=== PATIENT | male | born 1995 | race Two or more races ===

== ENCOUNTER 2019-04-10 16:02 | Emergency (ER) | payer OTHER ==
[~2019-04-10] VITALS: Ht 172.7 cm; Wt 87.1 kg
[2019-04-10] MEDS ORDERED: KETOROLAC 15 MG/ML VIAL. IM ONE (16:15)
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
--- NOTE | 2019-04-10 17:06 | RAD ---
EXAM: Lumbar spine CT without contrast. HISTORY: Fall. TECHNIQUE: Computed tomographic images of the lumbar spine were obtained without contrast. Multiplanar reformatting was performed. *One or more of the following individualized dose reduction techniques were utilized for this examination: 1. Automated exposure control. 2. Adjustment of the mA and/or kV according to patient size. 3. Use of iterative reconstruction technique. COMPARISON: Radiographs obtained on the same date. FINDINGS: There is a mild acute anterior wedge compression fracture of L1 with approximately one third decreased in anterior vertebral body height. There is no retropulsion of the cortex or fracture line extension to the posterior elements. The remainder of the visualized vertebral bodies are normal in height. There is minimal endplate remodeling. There are few small endplate Schmorl's nodes. There is no suspicious osseous lesion. There is no significant stenosis. IMPRESSION: Mild acute wedge compression fracture of L1. There is no fracture line extension to the posterior elements or significant central canal stenosis. Electronically signed by: Lesly Young MD (04/10/2019 5:03 PM) [facility]
[2019-04-10] MEDS ORDERED: HYDR-3165 PO (18:06)
[2019-04-10] MEDS ORDERED: MELO7.5T29 PO (18:06)
[2019-04-10 18:12] VITALS: BP 134/81
== END 2019-04-10 18:12 | disposition home or self-care (01) ==
LOC: ER 16:02
DX: S32.010A Wedge compression fracture of first lumbar vertebra, initial encounter for closed fracture (principal); F17.210 Nicotine dependence, cigarettes, uncomplicated; W18.39XA Other fall on same level, initial encounter; Y93.89 Activity, other specified; Y92.89 Other specified places as the place of occurrence of the external cause; Y99.8 Other external cause status
CPT/HCPCS: 72100; 72131; 96372; 99284; J1885

== ENCOUNTER 2019-11-28 19:37 | Emergency (ER) | payer OTHER ==
[~2019-11-28] VITALS: Ht 172.7 cm; Wt 86.4 kg
[~2019-11-28 19:37] MED LIST: HYDR-3165 PO; MELO7.5T29 PO
[2019-11-28 19:45] VITALS: BP 143/99
[2019-11-28] MEDS ORDERED: DEXAMETHASONE 4 MG TABLET PO ONE (20:00)
--- NOTE | 2019-11-28 20:05 | PHYS DOC ---
Past History Past Medical History: No Pertinent History Past Surgical History: No Surgical History Smoking: Cigarettes, Less than 1pk/day Alcohol Use: Heavy Drug Use: None Adult General Chief Complaint Chief Complaint: COUGH HPI HPI 24-year-old male presents to the ED with a cough. He states that he has had this cough since with some phlegm. Associated symptoms: Ear fullness, subjective fevers, and diarrhea. Patient reports that he was diagnosed with Strep throat 2 weeks ago and just finished antibiotics for that. Denies nausea, vomiting, chest pain, or abdominal pain. Patient says he has taken Robitussin for his symptoms with no relief. Review of Systems Review of Systems Constitutional: Denies fever or chills Eyes: Denies redness or eye pain HENT: Denies nasal congestion or sore throat; reports ear fullness Respiratory: Reports cough; denies shortness breath. Cardiovascular: Denies chest pain or palpitations GI: Denies abdominal pain, nausea, or vomiting; reports diarrhea : Denies dysuria or hematuria Musculoskeletal: Denies back pain or joint pain Integument: Denies rash or skin lesions Neurologic: Denies headache, focal weakness or sensory changes Complete systems were reviewed and found to be within normal limits, except as documented in this note. Allergies Allergies Allergies Coded Allergies Type Severity Reaction Last Updated Verified Penicillins Allergy Unknown 04/10/19 Yes Physical Exam Physical Exam Constitutional: Well developed, well nourished, no acute distress, non-toxic appearance HENT: Normocephalic, atraumatic, oropharynx moist Eyes: Conjunctiva normal, no discharge Neck: Normal range of motion, no tenderness, supple Cardiovascular: Heart rate normal, regular rhythm Lungs & Thorax: Bilateral breath sounds clear to auscultation, no wheezing Abdomen: Soft, no tenderness Skin: Warm, dry, no erythema, no rash Extremities: No tenderness, ROM intact, no edema Neurologic: Alert and oriented X 3, no focal deficits noted Psychologic: Affect normal, judgement normal EKG EKG [] Radiology/Procedures Radiology/Procedures PROCEDURE: CHEST PA & LATERAL CHEST PA LATERAL History: Cough Comparison: None. Findings: 2 views of the chest are submitted. There is no infiltrate, pneumothorax, or effusion. Pericardial cardiac silhouette is within normal limits in size. Impression: 1. There is no radiographic evidence of acute cardiopulmonary disease. Electronically signed by: Luis Mortensen MD (11/28/2019 8:28 PM) [facility] Course & Med Decision Making Course & Med Decision Making Pertinent Imaging studies reviewed. (See chart for details) Patient presents to the ED with cough he has had since . Due to recent diagnosis of strep. Chest x-ray unremarkable. Symptomatic oral steroid provided. Recommended need for humidifier at night. Will prescribe steroids for home and counseled to follow up with primary care physician. Patient was agreeable and understanding of plan. Patient stable for discharge with outpatient follow-up with PCP. Discussed findings and plan with patient, who acknowledges understanding and agreement. Dragon Disclaimer Dragon Disclaimer This electronic medical record was generated, in whole or in part, using a voice recognition dictation system. Departure Departure: Impression: Primary Impression: Bronchitis Disposition: HOME, SELF-CARE Condition: STABLE Referrals: PCP,UNKNOWN (PCP) Patient Instructions: Acute Bronchitis, [id number] Additional Instructions: Use humidifier at night. Use over the counter cold and cough medications in addition to prescribed medications. Scripts Prednisone (PREDNISONE) 20 Mg Tablet 2 TAB PO DAILY for Bronchitis, #8 TAB Start this prescription tomorrow, Saturday11/29/19 Prov: CIRO APARICIO DO 11/28/19 CIRO APARICIO DO Nov 28, 2019 20:05
--- NOTE | 2019-11-28 20:31 | RAD ---
CHEST PA LATERAL History: Cough Comparison: None. Findings: 2 views of the chest are submitted. There is no infiltrate, pneumothorax, or effusion. Pericardial cardiac silhouette is within normal limits in size. Impression: 1. There is no radiographic evidence of acute cardiopulmonary disease. Electronically signed by: Luis Mortensen MD (11/28/2019 8:28 PM) [facility]
[2019-11-28] MEDS ORDERED: PRED20TA PO (20:55)
== END 2019-11-28 21:05 | disposition home or self-care (01) ==
LOC: ER 19:37
DX: J40 Bronchitis, not specified as acute or chronic (principal); F17.210 Nicotine dependence, cigarettes, uncomplicated; R19.7 Diarrhea, unspecified
CPT/HCPCS: 71046; 99284; J8540

== ENCOUNTER 2020-07-04 20:03 | Emergency (ER) | payer OTHER ==
[~2020-07-04] VITALS: Ht 172.7 cm; Wt 86.4 kg
[~2020-07-04 20:03] MED LIST changes: +PRED20TA PO
[2020-07-04] MEDS ORDERED: CLIN300C8 PO (20:57)
--- NOTE | 2020-07-04 20:58 | PHYS DOC ---
Past History Past Medical History: No Pertinent History Past Surgical History: Other Additional Past Surgical Histo: EYE Smoking: Cigarettes, Less than 1pk/day Alcohol Use: Heavy Drug Use: None General Adult EDM: Chief Complaint: ABSCESS HPI: HPI: 25-year-old male presents with sores on his lower lip. They are in the inside of his mouth. He has had the one on the left for about a week and there is a new small amount on the right. They are about a centimeter in diameter. They are not painful. The patient is to simply go away, but the left one been there for a week. He has never had this before. He does occasionally chew on his lip. He denies any trauma. He has no other complaints this time. Review of Systems: Review of Systems: Constitutional: Denies fever or chills Eyes: Denies change in visual acuity HENT: Lower lip sores Respiratory: Denies cough or shortness of breath Cardiovascular: Denies chest pain or edema GI: Denies abdominal pain, nausea, vomiting, bloody stools or diarrhea : Denies dysuria Musculoskeletal: Denies back pain or joint pain Integument: Denies rash Neurologic: Denies headache, focal weakness or sensory changes Endocrine: Denies polyuria or polydipsia Lymphatic: Denies swollen glands Psychiatric: Denies depression or anxiety Heart Score: Risk Factors: Risk Factors: DM, Current or recent (<one month) smoker, HTN, HLP, family history of CAD, obesity. Risk Scores: Score 0 - 3: 2.5% MACE over next 6 weeks - Discharge Home Score 4 - 6: 20.3% MACE over next 6 weeks - Admit for Clinical Observation Score 7 - 10: 72.7% MACE over next 6 weeks - Early Invasive Strategies Allergies: Allergies: Allergies Coded Allergies Type Severity Reaction Last Updated Verified Penicillins Allergy Unknown 04/10/19 Yes Physical Exam: PE: Constitutional: Well developed, well nourished, no acute distress, non-toxic appearance. [] HENT: Normocephalic, atraumatic, bilateral external ears normal, lower lip with 1 cm inflammation unsure if this is infectious or posttraumatic, nose normal. [] Eyes: PERRLA, EOMI, conjunctiva normal, no discharge. [] Neck: Normal range of motion, no tenderness, supple, no stridor. [] Cardiovascular: Heart rate regular rhythm, no murmur [] Lungs & Thorax: Bilateral breath sounds clear to auscultation [] Abdomen: Bowel sounds normal, soft, no tenderness, no masses, no pulsatile masses. [] Skin: Warm, dry, no erythema, no rash. [] Back: No tenderness, no CVA tenderness. [] Extremities: No tenderness, no cyanosis, no clubbing, ROM intact, no edema. [] Neurologic: Alert and oriented X 3, normal motor function, normal sensory function, no focal deficits noted. [] Psychologic: Affect normal, judgement normal, mood normal. [] EKG: EKG: [] Radiology/Procedures: Radiology/Procedures: [] Course & Med Decision Making: Course & Med Decision Making Pertinent Labs and Imaging studies reviewed. (See chart for details) I cannot tell if this is infectious or just inflammatory. I will go and cover the patient with clindamycin. We will give the first dose in the ED. I have advised warm salt water rinses. If 1 of these comes to ahead, the patient will attempt to palpate. He will follow-up as necessary. He is stable for discharge at this time. [] Dragon Disclaimer: Dragon Disclaimer: This electronic medical record was generated, in whole or in part, using a voice recognition dictation system. Departure Departure: Impression: Primary Impression: Oral mucosal lesion Disposition: HOME/RESIDENCE PRIOR TO ADM Condition: STABLE Referrals: PCP,NO (PCP) Patient Instructions: Canker Sores, Brief Scripts Clindamycin Hcl (CLINDAMYCIN HCL) 300 Mg Capsule 1 CAP PO TID for mouth infection for 7 Days, #21 CAP Prov: AGNES JAIN DO 07/04/20 Justification of Admission: Justification of Admission: Justification of Admission Dx: N/A AGNES JAIN DO Jul 04, 2020 20:58
[2020-07-04 21:17] VITALS: BP 123/75
[2020-07-04] MEDS ORDERED: CLINDAMYCIN HCL 150 MG CAPSULE PO ONE (21:30)
== END 2020-07-04 21:17 | disposition home or self-care (01) ==
LOC: ER 20:03
DX: K13.70 Unspecified lesions of oral mucosa (principal); F17.210 Nicotine dependence, cigarettes, uncomplicated; F10.20 Alcohol dependence, uncomplicated; Z88.0 Allergy status to penicillin; Y90.9 Presence of alcohol in blood, level not specified
CPT/HCPCS: 99283

== ENCOUNTER 2021-07-27 00:24 | Emergency (ER) | payer OTHER ==
[~2021-07-27] VITALS: Ht 170.2 cm; Wt 88.6 kg
[~2021-07-27 00:24] MED LIST changes: +CLIN300C9 PO
--- NOTE | 2021-07-27 00:45 | PHYS DOC ---
Past History Past Medical History: No Pertinent History Past Surgical History: Other Additional Past Surgical Histo: EYE Smoking: Cigarettes, Less than 1pk/day Alcohol Use: None Drug Use: None Adult General Chief Complaint Chief Complaint: SKIN PROBLEM HPI HPI Patient is an otherwise healthy 26-year-old male with no known allergies who presents with a chief complaint of hives. States he never had hives before. S tates he was outside running today and was real sweaty and this the first time he noticed him. They started on his forearms and then started to itch and then spread to his upper extremities and some on his back. Denies any headaches, changes in vision, lightheadedness, pain or trouble swallowing, chest pain, shortness of breath, wheezing, abdominal pain, nausea, vomiting, diarrhea. States he otherwise feels fine except for some of the itching. States the have disappeared in some areas and popped up on new areas. Review of Systems Review of Systems Review of systems otherwise unremarkable except noted in HPI Allergies Allergies Allergies Coded Allergies Type Severity Reaction Last Updated Verified Penicillins Allergy Unknown 04/10/19 Yes Physical Exam Physical Exam Constitutional: Well developed, well nourished, no acute distress, non-toxic appearance. [] HENT: Normocephalic, atraumatic, bilateral external ears normal, oropharynx moist, no oral exudates, nose normal. [] Eyes:conjunctiva normal, no discharge. [] Neck: Normal range of motion, no tenderness, supple, no stridor. [] Cardiovascular:Heart rate regular rhythm, no murmur [] Lungs & Thorax: Bilateral breath sounds clear to auscultation [] Abdomen: soft, no tenderness, no masses, no pulsatile masses. [] Skin: Warm, dry, urticarial rash on forearms, some on the back and some on the calves with none on the palms, soles or face Extremities: No tenderness, no cyanosis, no clubbing, ROM intact, no edema. [] Neurologic: Alert and oriented X 3, normal motor function, normal sensory function, no focal deficits noted. [] Psychologic: Affect normal, judgement normal, mood normal. [] Current Patient Data Vital Signs Vital Signs Date Time Temp Pulse Resp B/P (MAP) Pulse Ox O2 Delivery O2 Flow Rate FiO2 07/27/21 00:30 97.9 88 18 144/101 (115) 97 Room Air EKG EKG [] Radiology/Procedures Radiology/Procedures [] Heart Score C/O Chest Pain: No Risk Factors: Risk Factors: DM, Current or recent (<one month) smoker, HTN, HLP, family history of CAD, obesity. Risk Scores: Risk Factors: DM, Current or recent (<one month) smoker, HTN, HLP, family history of CAD, obesity. Course & Med Decision Making Course & Med Decision Making Patient is a 26-year-old male, otherwise healthy with no known allergies who presents with urticaria Vital signs not concerning. Physical exam noted above. Patient given steroids and diphenhydramine. Discussed all findings with patient. Advised on symptom control at home. Advised to follow-up in the morning with primary care physician to set up a follow-up as needed. Gave return precautions to the ED. Patient grateful, verbalized understanding and agreed with plan of discharge. [] Dragon Disclaimer Dragon Disclaimer This electronic medical record was generated, in whole or in part, using a voice recognition dictation system. Departure Departure: Impression: Primary Impression: Urticaria Additional Impression: Hives Disposition: HOME / SELF CARE / HOMELESS Condition: GOOD Referrals: PCP,UNKNOWN (PCP) KLARISSA CANALES MD Patient Instructions: Hives Additional Instructions: Thanks for coming into the emergency department tonight and allowing us to take care of you. Please read all the attached information very carefully to go back over things we discussed. You can continue to use Benadryl as needed every 6 hours for itching. In the daytime, you can use something like Zyrtec as an antihistamine as these do not make you drowsy. Please call your primary care physician in the morning to update on ED visit and set up a follow-up as needed. Please come back to the ED with new or concerning symptoms as discussed. Problem Qualifiers SAMIRA MADDEN MD Jul 27, 2021 00:44
[2021-07-27 00:55] VITALS: BP 142/100
[2021-07-27] MEDS ORDERED: DEXAMETHASONE 4 MG TABLET PO ONE (01:00)
[2021-07-27] MEDS ORDERED: diphenhydrAMINE HCL 25 MG CAPSULE PO ONE (01:00)
== END 2021-07-27 00:58 | disposition home or self-care (01) ==
LOC: ER 00:24
DX: L50.9 Urticaria, unspecified (principal)
CPT/HCPCS: 99283; J8540; Q0163